=== PATIENT | female | born 1985 | race Caucasian/White ===

== ENCOUNTER 2023-12-11 19:49 | Emergency (ER) | payer OTHER ==
[~2023-12-11] VITALS: Ht 160 cm; Wt 69.9 kg
[2023-12-11 19:57] VITALS: TEMP 98.3
[2023-12-11 21:47] VITALS: BP 111/87; O2SAT 98
== END 2023-12-11 21:47 | disposition left against medical advice (07) ==
LOC: ER 19:54 → EDSEX 19:54 → ER 21:47
DX: O26.891 Other specified pregnancy related conditions, first trimester (principal); S01.81XA Laceration without foreign body of other part of head, initial encounter; S01.112A Laceration without foreign body of left eyelid and periocular area, initial encounter; E03.9 Hypothyroidism, unspecified; V89.2XXA Person injured in unspecified motor-vehicle accident, traffic, initial encounter; Y93.89 Activity, other specified; Y92.89 Other specified places as the place of occurrence of the external cause; Y99.8 Other external cause status
CPT/HCPCS: 70450-TC; 76805-TC